=== PATIENT | female | born 1995 | race Caucasian/White ===

== ENCOUNTER 2018-09-13 05:41 | Inpatient (IN) | payer OTHER ==
[~2018-09-13] VITALS: Ht 162.6 cm; Wt 88.9 kg
[2018-09-13] MEDS ORDERED: PRENATAL TABLE1 EAC1 PO (06:05)
== END 2018-09-15 13:07 | disposition home or self-care (01) | DRG 807 ==
LOC: OB/GYN 05:41 → LDR 05:41 → OB/GYN 09-14 03:47
PROVIDERS: ADMIT Obstetrics & Gynecology
PROC: 4A1HXCZ Monitoring of Products of Conception, Cardiac Rate, External Approach (ICD-10-PCS; 2018-09-13)
PROC: 10E0XZZ Delivery of Products of Conception, External Approach (ICD-10-PCS; principal; 2018-09-14)
PROC: 0UQGXZZ Repair Vagina, External Approach (ICD-10-PCS; 2018-09-14)
DX: O71.4 Obstetric high vaginal laceration alone (principal); Z37.0 Single live birth; Z3A.39 39 weeks gestation of pregnancy